=== PATIENT | male | born 1970 | race African-American/Black ===

== ENCOUNTER 2020-08-05 17:03 | Emergency (ER) | payer SELFPAY ==
[2020-08-05 17:21] VITALS: BP 142/78
[2020-08-05] MEDS ORDERED: oxyCODONE /ACETAMINOPHEN 5-325MG TAB PO ONE ×2 (20:43→23:30)
[2020-08-05] MEDS ORDERED: ONDANSETRON 4 MG ODT TAB PO ONE (20:43)
[2020-08-05] MEDS ORDERED: predniSONE 20 MG TAB PO ONE (20:45)
[2020-08-05] MEDS ORDERED: KETOROLAC 60 MG/2 ML INJ IM ONE (20:45)
[2020-08-05] MEDS ORDERED: BUTALB/ACETAMINOPHEN/CAFFEINE TAB PO ONE (20:45)
--- NOTE | 2020-08-05 20:50 | Emergency Department Report ---
ED General Adult HPI - General Chief complaint: Headache Stated complaint: HEADACHE Source: patient Mode of arrival: Ambulatory Limitations: No Limitations - History of Present Illness Initial comments: Patient is a 50-year-old male with a history of chronic low back pain and status post lumbar kyphoplasty surgery who presents to the ED with acute exacerbation of his chronic low back pain and severe headache for the last 5 days. Patient states that he has been taking his regular pain medications [place] 10 mg - 325 mg up to 3 times a day with no relief. Patient states that the last time he took his pain medication was 2 hours prior to arrival in the ED. Patient denies fall, traumatic injury, dizziness, syncope, chest pain, shortness of breath, abdominal pain, testicular pain, hematuria, heavy lifting, numbness and tingling or weakness of lower extremities bilaterally, fever, chills, cough, headache, neck pain, seizures or palpitations. MD Complaint: Severe headache, low back pain -: Sudden, days(s) (5) Location: head, back Radiation: non-radiation Severity scale (0 -10): 9 Quality: aching, sharp Consistency: constant Improves with: none Worsens with: movement Associated Symptoms: denies other symptoms, headaches, malaise. denies: confusion, chest pain, cough, diaphoresis, fever/chills, loss of appetite, nausea/vomiting, rash, seizure, shortness of breath, syncope, weakness, other Treatments Prior to Arrival: other ([place] 10mg/325mg) - Related Data Previous Rx's Medication Instructions Recorded Last Taken Type Gabapentin 300 mg PO BID PRN #30 cap 08/05/20 Unknown Rx Naproxen 500 mg PO Q12H PRN #30 tablet 08/05/20 Unknown Rx methOCARBAMOL [Robaxin TAB] 750 mg PO Q8H PRN #30 tablet 08/05/20 Unknown Rx predniSONE [Deltasone] 60 mg PO QDAY #15 tab 08/05/20 Unknown Rx Allergies Allergy/AdvReac Type Severity Reaction Status Date / Time No Known Allergies Allergy Verified 08/05/20 23:36 ED Review of Systems ROS: Stated complaint: HEADACHE Other details as noted in HPI Constitutional: denies: chills, fever Eyes: denies: eye pain, eye discharge, vision change ENT: denies: ear pain, throat pain Respiratory: denies: cough, shortness of breath, wheezing Cardiovascular: denies: chest pain, palpitations Endocrine: no symptoms reported Gastrointestinal: denies: abdominal pain, nausea, diarrhea Genitourinary: denies: urgency, dysuria Musculoskeletal: back pain (Low back pain). denies: joint swelling, arthralgia Skin: denies: rash, lesions Neurological: headache. denies: weakness, paresthesias Psychiatric: denies: anxiety, depression Hematological/Lymphatic: denies: easy bleeding, easy bruising ED Past Medical Hx - Past Medical History Previous Medical History?: No Hx Arthritis: Yes (Chronic low back pain) - Surgical History Past Surgical History?: No - Medications Home Medications: Home Medications Medication Instructions Recorded Confirmed Last Taken Type Gabapentin 300 mg PO BID PRN #30 cap 08/05/20 Unknown Rx Naproxen 500 mg PO Q12H PRN #30 tablet 08/05/20 Unknown Rx methOCARBAMOL [Robaxin TAB] 750 mg PO Q8H PRN #30 tablet 08/05/20 Unknown Rx predniSONE [Deltasone] 60 mg PO QDAY #15 tab 08/05/20 Unknown Rx ED Physical Exam - General Limitations: No Limitations General appearance: alert, in no apparent distress - Head Head exam: Present: atraumatic, normocephalic, normal inspection - Eye Eye exam: Present: normal appearance, PERRL, EOMI Pupils: Present: normal accommodation - ENT ENT exam: Present: normal exam, normal orophraynx, mucous membranes moist, TM's normal bilaterally, normal external ear exam - Neck Neck exam: Present: normal inspection, full ROM - Respiratory Respiratory exam: Present: normal lung sounds bilaterally. Absent: respiratory distress, wheezes, rhonchi, stridor, chest wall tenderness, accessory muscle use, decreased breath sounds - Cardiovascular Cardiovascular Exam: Present: regular rate, normal rhythm, normal heart sounds. Absent: systolic murmur, diastolic murmur, rubs, gallop - GI/Abdominal GI/Abdominal exam: Present: soft, normal bowel sounds. Absent: tenderness, guarding, hyperactive bowel sounds, hypoactive bowel sounds - Extremities Exam Extremities exam: Present: normal inspection, full ROM, normal capillary refill - Back Exam Back exam: Present: normal inspection, full ROM, tenderness (Palpable lumbosacral paraspinal musculoskeletal tenderness), muscle spasm, paraspinal tenderness - Neurological Exam Neurological exam: Present: alert, oriented X3, CN II-XII intact, normal gait, reflexes normal - Psychiatric Psychiatric exam: Present: normal affect, normal mood - Skin Skin exam: Present: warm, dry, intact, normal color. Absent: rash ED Course Vital Signs 08/05/20 08/05/20 17:17 23:28 Temperature 98.0 F 98 F Pulse Rate 94 H 82 Respiratory 20 Rate Blood Pressure 142/78 142/78 O2 Sat by Pulse 99 Oximetry ED Medical Decision Making - Lab Data Result diagrams: 08/05/20 20:51 08/05/20 20:51 - Radiology Data Radiology results: report reviewed, image reviewed Findings [facility] [address] [place] [address] Cat Scan Report Signed Patient: BOB REYEZ MR#: [id number] 76 : 1970 Acct:[id number] Age/Sex: 50 / M ADM Date: 08/05/20 Loc: ED Attending Dr: Ordering Physician: IRENE ORTIZ Date of Service: 08/05/20 Procedure(s): CT lumbar spine wo con Accession Number(s): [id number] cc: IRENE ORTIZ CT lumbar spine wo con INDICATION / CLINICAL INFORMATION: 50 years Male; Pain. TECHNIQUE: Axial CT images of the lumbar spine were obtained. Sagittal and coronal reformatted images were produced. All CT scans at this location are performed using CT dose reduction for ALARA by means of automated exposure control. COMPARISON: None available. FINDINGS: POST-SURGICAL CHANGES: Posterior fusion hardware seen from L4 through S1 - bilateral intrapedicular screws noted. Partial, bilateral hemilaminectomies seen at these levels. Interbody fusion material noted as well. ALIGNMENT: No significant abnormality. VERTEBRAE: No signs of fracture. Vertebral bodies are grossly normal in height throughout. [id number] ANALYSIS: Disc spaces at nonoperative levels are well-maintained. L1-2: Minimal facet hypertrophy. L2-3: Minimal facet hypertrophy. L3-4: Mild disc bulge. Partial right hemilaminectomy suggested. Mild to moderate facet hypertrophy. Mild foraminal narrowing bilaterally without significant sequela. L4-5: As above. No significant canal stenosis or foraminal narrowing. L5-S1: As above. No significant canal stenosis or foraminal narrowing. PARASPINAL SOFT TISSUES: No significant abnormality. ADDITIONAL FINDINGS: Mild anterior spurring is seen along the sacroiliac joints - left greater than right. IMPRESSION: 1. No signs of epidural fluid collection or evidence of discitis. 2. Degenerative and postoperative changes of the lumbar spine as described above. Signer Name: Neal Keita MD, III Signed: 08/05/2020 10:08 PM Workstation Name: [id number] Transcribed By: HR Dictated By: Neal Keita MD Electronically Authenticated By: Neal Keita MD Signed Date/Time: 08/05/202207 DD/ 04 TD/TT: Findings [facility] [address] [place] [address] Cat Scan Report Signed Patient: BOB REYEZ MR#: [id number] [birth year] : 1970 Acct:[id number] Age/Sex: 50 / M ADM Date: 08/05/20 Loc: ED Attending Dr: Ordering Physician: IRENE ORTIZ Date of Service: 08/05/20 Procedure(s): CT head/brain wo con Accession Number(s): [id number] cc: IRENE ORTIZ . CT head/brain wo con INDICATION / CLINICAL INFORMATION: 50 years Male; Severe headache. TECHNIQUE: Routine CT head without contrast. All CT scans at this location are performed using CT dose reduction for ALARA by means of automated exposure control. COMPARISON: None. FINDINGS: BRAIN / INTRACRANIAL CONTENTS: There may be a small arachnoid cyst posterior medial to the right cerebellar hemisphere-of no clinical significance. Otherwise, no acute hemorrhage, mass effect, midline shift, hydrocephalus, or acute, large territorial infarct. No signs of significant atrophy or chronic infarct. No significant white matter abnormality seen. CRANIOCERVICAL JUNCTION: No significant abnormality. ORBITS: No significant abnormality of visualized orbits. SINUSES / MASTOIDS: Visualized paranasal sinuses and mastoid air cells are essentially clear. ADDITIONAL FINDINGS: None. IMPRESSION: 1. No focal mass, hemorrhage, hydrocephalus, or acute, large territorial infarct. Signer Name: Neal Keita MD, III Signed: 08/05/2020 10:04 PM Workstation Name: [email or web address] Transcribed By: HR Dictated By: Neal Keita MD Electronically Authenticated By: Neal Keita MD Signed Date/Time: 08/05/202203 DD/ 02 TD/TT: - Medical Decision Making This is a 50-year-old male with a history of chronic low back pain and status post lumbar kyphoplasty surgery who presents to the ED with acute exacer bation of his chronic low back pain and severe headache for the last 5 days. Patient states that he has been taking his regular pain medications [place] 10 mg - 325 mg up to 3 times a day with no relief. Patient states that the last time he took his pain medication was 2 hours prior to arrival in the ED. in the ED, patient is alert and oriented x3 and is not in distress but appears to be in pain. Patient was treated for pain in the ED. Lab test results were reviewed and are all nonactionable. Head CT scan without contrast showed no acute intracranial abnormalities or hemorrhage. The L-spine CT scan without contrast showed no acute fractures or subluxations, the prosthetic surgical clips are intact with no loosening. It also showed significant degenerative lumbar disc disease. On reevaluation, patient's pain is well controlled medications. Patient is ambulating normally in the ED with no difficulties. Patient was therefore discharged home on muscle relaxants and pain medications and advised to follow-up with his primary care physician in 7 to 10 days for reevaluation. Patient was advised return to the ED immediately if symptoms get worse. - Differential Diagnosis Chronic pain; muscle spasm; kidney stone; muscle strain;SAH; tension headac Critical care attestation.: If time is entered above; I have spent that time in minutes in the direct care of this critically ill patient, excluding procedure time. ED Disposition Clinical Impression: Acute exacerbation of chronic low back pain, Spasm of muscle of lower back Acute tension-type headache Qualifiers: Intractability: not intractable Qualified Code(s): G44.209 - Tension-type headache, unspecified, not intractable Disposition: DC-01 TO HOME OR SELFCARE Is pt being admited?: No Does the pt Need Aspirin: No Condition: Stable Instructions: Muscle Cramps and Spasms, [id number], Tension Headache, Adult, Boia-fu-Mdqb, General Headache Without Cause, Llax-cz-Lafl, Chronic Back Pain, Fith-vx-Vmuk Additional Instructions: All lab test results are nonactionable. The head CT scan without contrast showed no acute intracranial abnormalities or hemorrhage. The L-spine CT scan without contrast showed no acute abnormalities except for chronic degenerative lumbar disc disease, and the surgical clips from previous lumbar spine surgery are intact. Therefore take your regular pain medications in addition to the muscle relaxants, and plenty of fluids and follow-up with your primary care physician in 5 to 7 days for reevaluation. Return to the ED immediately if symptoms get worse. Prescriptions: predniSONE [Deltasone] 60 mg PO QDAY #15 tab Gabapentin 300 mg PO BID PRN #30 cap PRN Reason: Pain , Severe (7-10) Naproxen 500 mg PO Q12H PRN #30 tablet PRN Reason: Pain , Severe (7-10) methOCARBAMOL [Robaxin TAB] 750 mg PO Q8H PRN #30 tablet PRN Reason: Muscle Spasm Referrals: THADDEUS DURON MD [Staff Physician] - 3-5 Days Time of Disposition: 23:48 Print Language: MACEDONIAN
[2020-08-05 21:19] LABS: Basophils # (Auto) 0.2 K/mm3 (0.0-0.1); Basophils % (Auto) 1.8 % (0.0-1.8); Eosinophils # (Auto) 0.1 K/mm3 (0.0-0.4); Eosinophils % (Auto) 0.5 % (0.0-4.3); Hematocrit 43.9 % (35.5-45.6); Hemoglobin 14.5 gm/dl (11.8-15.2); Lymphocytes # (Auto) 1.8 K/mm3 (1.2-5.4); Lymphocytes % (Auto) 15.2 % (13.4-35.0); Mean Corpuscular HGB Conc 33 % (32-34); Mean Corpuscular Volume 90 fl (84-94); Monocytes # (Auto) 0.9 K/mm3 (0.0-0.8); Monocytes % (Auto) 7.7 % (0.0-7.3); Platelet Count 307 K/mm3 (140-440); Red Blood Count 4.86 M/mm3 (3.65-5.03); Red Cell Distribution Width 12.4 % (13.2-15.2)
[2020-08-05 21:41] LABS: Alanine Aminotransferase 19 units/L (7-56); Albumin 4.2 g/dL (3.9-5); BUN/Creatinine Ratio 15; Blood Urea Nitrogen 12 mg/dL (9-20); Calcium 9.3 mg/dL (8.4-10.2); Hemolysis Index 6
--- NOTE | 2020-08-05 22:09 | Cat Scan Report ---
. CT head/brain wo con INDICATION / CLINICAL INFORMATION: 50 years Male; Severe headache. TECHNIQUE: Routine CT head without contrast. All CT scans at this location are performed using CT dos e reduction for ALARA by means of automated exposure control. COMPARISON: None. FINDINGS: BRAIN / INTRACRANIAL CONTENTS: There may be a small arachnoid cyst posterior medial to the right cere bellar hemisphere-of no clinical significance. Otherwise, no acute hemorrhage, mass effect, midline shift, hydrocephalus, or acute, large territori al infarct. No signs of significant atrophy or chronic infarct. No significant white matter abnormali ty seen. CRANIOCERVICAL JUNCTION: No significant abnormality. ORBITS: No significant abnormality of visualized orbits. SINUSES / MASTOIDS: Visualized paranasal sinuses and mastoid air cells are essentially clear. ADDITIONAL FINDINGS: None. IMPRESSION: 1. No focal mass, hemorrhage, hydrocephalus, or acute, large territorial infarct. Signer Name: Neal Keita MD, III Signed: 08/05/2020 10:04 PM Workstation Name: [id number]
--- NOTE | 2020-08-05 22:13 | Cat Scan Report ---
CT lumbar spine wo con INDICATION / CLINICAL INFORMATION: 50 years Male; Pain. TECHNIQUE: Axial CT images of the lumbar spine were obtained. Sagittal and coronal reformatted images were prod uced. All CT scans at this location are performed using CT dose reduction for ALARA by means of autom ated exposure control. COMPARISON: None available. FINDINGS: POST-SURGICAL CHANGES: Posterior fusion hardware seen from L4 through S1 - bilateral intrapedicular s crews noted. Partial, bilateral hemilaminectomies seen at these levels. Interbody fusion material not ed as well. ALIGNMENT: No significant abnormality. VERTEBRAE: No signs of fracture. Vertebral bodies are grossly normal in height throughout. [id number] ANALYSIS: Disc spaces at nonoperative levels are well-maintained. L1-2: Minimal facet hypertrophy. L2-3: Minimal facet hypertrophy. L3-4: Mild disc bulge. Partial right hemilaminectomy suggested. Mild to moderate facet hypertrophy. Mild foraminal narrowing bilaterally without significant sequela. L4-5: As above. No significant canal stenosis or foraminal narrowing. L5-S1: As above. No significant canal stenosis or foraminal narrowing. PARASPINAL SOFT TISSUES: No significant abnormality. ADDITIONAL FINDINGS: Mild anterior spurring is seen along the sacroiliac joints - left greater than r ight. IMPRESSION: 1. No signs of epidural fluid collection or evidence of discitis. 2. Degenerative and postoperative changes of the lumbar spine as described above. Signer Name: Neal Keita MD, III Signed: 08/05/2020 10:08 PM Workstation Name: [id number]
[2020-08-06 00:30] LABS: Bilirubin,Urine NEG (Negative); Blood,Urine NEG (Negative); Color,Urine Yellow (Yellow); Mucus,Urine FEW /HPF; Protein,Urine <15 mg/dL mg/dL (Negative); Urobilinogen,Urine < 2.0 mg/dL (<2.0)
== END 2020-08-06 00:01 | disposition home or self-care (01) ==
LOC: ED 17:03
DX: G44.209 Tension-type headache, unspecified, not intractable (principal); M62.830 Muscle spasm of back; M54.5 Low back pain; Z79.899 Other long term (current) drug therapy
CPT/HCPCS: 36415; 70450; 72131; 80053; 81001; 85025; 96372; 99284; J1885; J7512; Q0162

== ENCOUNTER 2020-08-11 18:00 | Emergency (ER) | payer BC ==
[2020-08-11 18:34] VITALS: BP 135/74
[2020-08-11] MEDS ORDERED: METOCLOPRAMIDE 10 MG/2 ML INJ IV ONE (21:33)
[2020-08-11] MEDS ORDERED: methylPREDNISolone Sod Succinate 125 MG/2 ML INJ IM ONE (21:33)
[2020-08-11] MEDS ORDERED: BUTALB/ACETAMINOPHEN/CAFFEINE TAB PO ONE (21:33)
[2020-08-11] MEDS ORDERED: diphenhydrAMINE 25 MG CAP PO ONE (21:34)
--- NOTE | 2020-08-11 21:35 | Emergency Department Report ---
ED General Adult HPI - General Chief complaint: Headache Stated complaint: HEADACHE/BACK PAIN Time Seen by Provider: 08/11/20 21:12 Source: patient Mode of arrival: Ambulatory Limitations: No Limitations - History of Present Illness Initial comments: The patient presents to the emergency department with a chief complaint of a headache that has been present since last Friday. The patient describes the pain as throbbing in nature and located in the front of his head. Patient also complains of lower back pain that radiates into his legs. Patient states he has chronic back pain that is usually controlled with [place] but at this time it is not alleviating his symptoms. Patient denies any issues with his bladder or bowel. Patient states the headache he has is not the worst headache of his life. -: week(s) (1) Location: head, back Radiation: extremity, distal Severity scale (0 -10): 8 Quality: other (throbbing) Improves with: none Worsens with: none Associated Symptoms: denies other symptoms Treatments Prior to Arrival: none - Related Data Previous Rx's Medication Instructions Recorded Last Taken Type Gabapentin 300 mg PO BID PRN #30 cap 08/05/20 Unknown Rx Naproxen 500 mg PO Q12H PRN #30 tablet 08/05/20 Unknown Rx methOCARBAMOL [Robaxin TAB] 750 mg PO Q8H PRN #30 tablet 08/05/20 Unknown Rx predniSONE [Deltasone] 60 mg PO QDAY #15 tab 08/05/20 Unknown Rx Butalb/Acetamin/Caff 50-325-40 1 tab PO Q6HR PRN #24 tab 08/12/20 Unknown Rx [Fioricet] Allergies Allergy/AdvReac Type Severity Reaction Status Date / Time No Known Allergies Allergy Verified 08/05/20 23:36 ED Review of Systems ROS: Stated complaint: HEADACHE/BACK PAIN Other details as noted in HPI Comment: All other systems reviewed and negative Constitutional: denies: chills, fever Eyes: denies: eye pain, eye discharge, vision change ENT: denies: ear pain, throat pain Respiratory: denies: cough, shortness of breath, wheezing Cardiovascular: denies: chest pain, palpitations Endocrine: no symptoms reported Gastrointestinal: denies: abdominal pain, nausea, diarrhea Genitourinary: denies: urgency, dysuria Musculoskeletal: back pain. denies: joint swelling, arthralgia Skin: denies: rash, lesions Neurological: headache. denies: weakness, paresthesias Psychiatric: denies: anxiety, depression Hematological/Lymphatic: denies: easy bleeding, easy bruising ED Past Medical Hx - Past Medical History Previous Medical History?: Yes Hx Arthritis: Yes (Chronic low back pain) - Surgical History Past Surgical History?: Yes Additional Surgical History: back surgery - Social History Smoking Status: Never Smoker Substance Use Type: None - Medications Home Medications: Home Medications Medication Instructions Recorded Confirmed Last Taken Type Gabapentin 300 mg PO BID PRN #30 cap 08/05/20 Unknown Rx Naproxen 500 mg PO Q12H PRN #30 tablet 08/05/20 Unknown Rx methOCARBAMOL [Robaxin TAB] 750 mg PO Q8H PRN #30 tablet 08/05/20 Unknown Rx predniSONE [Deltasone] 60 mg PO QDAY #15 tab 08/05/20 Unknown Rx Butalb/Acetamin/Caff 50-325-40 1 tab PO Q6HR PRN #24 tab 08/12/20 Unknown Rx [Fioricet] ED Physical Exam - General Limitations: No Limitations General appearance: alert, in no apparent distress - Head Head exam: Present: atraumatic, normocephalic - Eye Eye exam: Present: normal appearance, PERRL, EOMI - ENT ENT exam: Present: mucous membranes moist - Neck Neck exam: Present: normal inspection - Respiratory Respiratory exam: Present: normal lung sounds bilaterally. Absent: respiratory distress - Cardiovascular Cardiovascular Exam: Present: regular rate, normal rhythm. Absent: systolic murmur, diastolic murmur, rubs, gallop - GI/Abdominal GI/Abdominal exam: Present: soft, normal bowel sounds. Absent: distended, tenderness - Rectal Rectal exam: Present: deferred - Extremities Exam Extremities exam: Present: normal inspection - Back Exam Back exam: Present: normal inspection - Neurological Exam Neurological exam: Present: alert, oriented X3, CN II-XII intact. Absent: motor sensory deficit - Psychiatric Psychiatric exam: Present: normal affect, normal mood - Skin Skin exam: Present: warm, dry, intact, normal color. Absent: rash ED Course Vital Signs 08/11/20 18:31 Temperature 97.3 F L Pulse Rate 94 H Respiratory 18 Rate Blood Pressure 135/74 [Right] O2 Sat by Pulse 99 Oximetry ED Medical Decision Making - Lab Data Result diagrams: 08/11/20 21:40 08/11/20 21:40 Lab Results 08/11/20 08/11/20 08/11/20 Range/Units 21:40 21:40 Unknown WBC 13.6 H (4.5-11.0) K/mm3 RBC 4.45 (3.65-5.03) M/mm3 Hgb 13.5 (11.8-15.2) gm/dl Hct 40.4 (35.5-45.6) % MCV 91 (84-94) fl MCH 30 (28-32) pg MCHC 34 (32-34) % RDW 12.6 L (13.2-15.2) % Plt Count 332 (140-440) K/mm3 Lymph % (Auto) 20.4 (13.4-35.0) % [place] % (Auto) 9.3 H (0.0-7.3) % Eos % (Auto) 0.7 (0.0-4.3) % Baso % (Auto) 0.2 (0.0-1.8) % Lymph # (Auto) 2.8 (1.2-5.4) K/mm3 [place] # (Auto) 1.3 H (0.0-0.8) K/mm3 Eos # (Auto) 0.1 (0.0-0.4) K/mm3 Baso # (Auto) 0.0 (0.0-0.1) K/mm3 Seg Neutrophils % 69.4 (40.0-70.0) % Seg Neutrophils # 9.4 H (1.8-7.7) K/mm3 Sodium 135 L (137-145) mmol/L Potassium 3.8 (3.6-5.0) mmol/L Chloride 96.6 L (98-107) mmol/L Carbon Dioxide 30 (22-30) mmol/L Anion Gap 12 mmol/L BUN 11 (9-20) mg/dL Creatinine 0.7 L (0.8-1.3) mg/dL Estimated GFR > 60 ml/min BUN/Creatinine Ratio 16 % Glucose 127 H (75-100) mg/dL Calcium 9.2 (8.4-10.2) mg/dL Urine Color Straw (Yellow) Urine Turbidity Clear (Clear) Urine pH 5.0 (5.0-7.0) Ur Specific Points 1.009 (1.003-1.030) Urine Protein <15 mg/dl (Negative) mg/dL Urine Glucose (UA) Neg (Negative) mg/dL Urine Ketones Neg (Negative) mg/dL Urine Blood Neg (Negative) Urine Nitrite Neg (Negative) Urine Bilirubin Neg (Negative) Urine Urobilinogen < 2.0 (<2.0) mg/dL Ur Leukocyte Esterase Neg (Negative) Urine WBC (Auto) < 1.0 (0.0-6.0) /HPF Urine RBC (Auto) 1.0 (0.0-6.0) /HPF - Medical Decision Making Reviewed the patient's CT of his back and head from previous visit The patient's elevated white count is likely secondary to acute stress reaction from pain Patient has no nuchal rigidity on exam and denies any neck pain. Patient had relief of his headache with headache medications Discussed work-up and plan of care with patient and follow-up plans. Patient states he has an appointment on 17 September with the physician Critical care attestation.: If time is entered above; I have spent that time in minutes in the direct care of this critically ill patient, excluding procedure time. ED Disposition Clinical Impression: Acute exacerbation of chronic low back pain, Headache Disposition: TO HOME OR SELFCARE Is pt being admited?: No Does the pt Need Aspirin: No Condition: Stable Instructions: General Headache Without Cause, Chronic Back Pain, [id number] Additional Instructions: return if worse Prescriptions: Butalb/Acetamin/Caff 50-325-40 [Fioricet] 1 tab PO Q6HR PRN #24 tab PRN Reason: Headache Referrals: MADIE HOWELL [Other] - 3-5 Days [facility] [Outside] - 3-5 Days [facility] [Provider Group] - 3-5 Days [facility] [Provider Group] - 3-5 Days [facility] [Provider Group] - 3-5 Days [facility] [Provider Group] - 3-5 Days
[2020-08-11] MEDS ORDERED: METOCLOPRAMIDE 10 MG TAB PO ONE (21:47)
[2020-08-11 21:49] LABS: Basophils % (Auto) 0.2 % (0.0-1.8); Eosinophils # (Auto) 0.1 K/mm3 (0.0-0.4); Eosinophils % (Auto) 0.7 % (0.0-4.3); Hematocrit 40.4 % (35.5-45.6); Hemoglobin 13.5 gm/dl (11.8-15.2); Lymphocytes # (Auto) 2.8 K/mm3 (1.2-5.4); Lymphocytes % (Auto) 20.4 % (13.4-35.0); Mean Corpuscular HGB Conc 34 % (32-34); Mean Corpuscular Volume 91 fl (84-94); Monocytes # (Auto) 1.3 K/mm3 (0.0-0.8); Monocytes % (Auto) 9.3 % (0.0-7.3); Platelet Count 332 K/mm3 (140-440); Red Blood Count 4.45 M/mm3 (3.65-5.03); Red Cell Distribution Width 12.6 % (13.2-15.2)
[2020-08-11 22:09] LABS: Blood Urea Nitrogen 11 mg/dL (9-20); Calcium 9.2 mg/dL (8.4-10.2); Hemolysis Index 32
[2020-08-11 22:10] LABS: BUN/Creatinine Ratio 16
--- NOTE | 2020-08-11 22:45 | XRay Report ---
CHEST 1 VIEW INDICATION / CLINICAL INFORMATION: cough. Headache COMPARISON: None available. FINDINGS: SUPPORT DEVICES: None. HEART / MEDIASTINUM: No significant abnormality. LUNGS / PLEURA: No significant pulmonary or pleural abnormality. No pneumothorax. ADDITIONAL FINDINGS: No significant additional findings. IMPRESSION: 1. No acute findings. Signer Name: Nette Perez MD Signed: 08/11/2020 10:41 PM Workstation Name: [id number]
[2020-08-11 23:45] LABS: Bilirubin,Urine NEG (Negative); Blood,Urine NEG (Negative); Color,Urine Straw (Yellow); Protein,Urine <15 mg/dL mg/dL (Negative); Urobilinogen,Urine < 2.0 mg/dL (<2.0); WBC,Urine < 1.0 /HPF (0.0-6.0)
== END 2020-08-12 00:29 | disposition home or self-care (01) ==
LOC: ED 18:00
DX: M54.5 Low back pain (principal); R51.9 Headache, unspecified; M19.91 Primary osteoarthritis, unspecified site; Z98.890 Other specified postprocedural states; Z79.899 Other long term (current) drug therapy
CPT/HCPCS: 36415; 71045; 80048; 81001; 85025; 96372; 99283; J2930; J2765